=== PATIENT | male | born 1955 | race Caucasian/White ===

== ENCOUNTER 2018-01-10 11:31 | Day surgery (SDC) | payer OTHER ==
[~2018-01-10] VITALS: Ht 167.6 cm; Wt 75.9 kg
[~2018-01-10 11:31] MED LIST: ASPI81CH; Prinivil10 MG
== END 2018-01-10 13:41 | disposition home or self-care (01) ==
LOC: ORSCSDS 11:31
PROVIDERS: Surgery
PROC: 0DBL8ZX Excision of Transverse Colon, Via Natural or Artificial Opening Endoscopic, Diagnostic (ICD-10-PCS; principal; 2018-01-10 13:00)
PROC: 0DBP8ZX Excision of Rectum, Via Natural or Artificial Opening Endoscopic, Diagnostic (ICD-10-PCS; principal; 2018-01-10 13:00)
DX: Z86.010 Personal history of colon polyps (principal); D12.8 Benign neoplasm of rectum; K62.1 Rectal polyp; D12.3 Benign neoplasm of transverse colon; J44.9 Chronic obstructive pulmonary disease, unspecified; Z79.82 Long term (current) use of aspirin; Z79.899 Other long term (current) drug therapy
CPT/HCPCS: 88305; J7120

== ENCOUNTER 2018-08-17 15:24 | Emergency (ER) | payer OTHER ==
[~2018-08-17] VITALS: Ht 170.2 cm; Wt 77.1 kg
[2018-08-17] MEDS ORDERED: CLON.1 PO (15:37)
[2018-08-17] MEDS ORDERED: MELO7.5 PO (15:37)
[2018-08-17 15:56] LABS: BASOPHILS ABSOLUTE AUTO 0.07 K/mm3 (0.00-0.23); BASOPHILS PERCENT AUTO 1 % (0-2); EOSINOPHILS ABSOLUTE AUTO 0.01 K/mm3 (0.00-0.68); EOSINOPHILS PERCENT AUTO 0 % (0-6); Hematocrit 45.2 % (37.0-53.0); Hemoglobin 15.8 g/dL (13.5-17.5); IMMATURE GRAN ABSOLUTE AUTO 0.06 K/mm3 (0.00-0.10); IMMATURE GRAN PERCENT AUTO 0 % (0-1); LYMPHOCYTES ABSOLUTE AUTO 0.62 K/mm3 (0.84-5.20); LYMPHOCYTES PERCENT AUTO 4 % (21-46); MONOCYTES ABSOLUTE AUTO 0.55 K/mm3 (0.16-1.47); MONOCYTES PERCENT AUTO 4 % (4-13); Mean Corpuscular HGB 32.7 pg (26.0-34.0); Mean Corpuscular Volume 94 fL (80-100); Mean Platelet Volume 8.7 fL (9.1-12.4); NEUTROPHILS ABSOLUTE AUTO 12.81 K/mm3 (1.96-9.15); NEUTROPHILS PERCENT AUTO 91 % (41-73); Platelet Count 352 K/mm3 (150-400); RDW Coefficient Variation 13.2 % (11.7-14.2); RDW Standard Deviation 45.6 fL (35.1-46.3); Red Blood Cell Count 4.83 M/mm3 (4.30-5.90); White Blood Cell Count 14.12 K/mm3 (4.00-11.30)
[2018-08-17 16:15] LABS: Alanine Aminotransfer (ALT/SGP 33 U/L (12-78); Albumin, Blood 4.1 g/dL (3.4-5.0); Albumin/Globulin Ratio 1.1 (0.8-1.8); Alk Phos 97 U/L (50-136); Anion Gap 13 mmol/L (6-16); Aspartate Aminotrans (AST/SGOT 38 U/L (12-37); Bilirubin, Total 1.1 mg/dL (0.1-1.0); Blood Urea Nitrogen 17 mg/dL (8-24); CO2, Blood 24 mmol/L (21-32); Calcium, Blood 8.7 mg/dL (8.5-10.1); Chloride, Blood 107 mmol/L (98-108); Creatinine, Blood 1.13 mg/dL (0.60-1.20); Free Thyroxine 1.05 ng/dL (0.70-1.60); Globulin, Blood 3.8 g/dL (2.2-4.0); Glomerular Filtration Rate >60 (60-); Glucose, Blood 124 mg/dL (70-99); Magnesium, Blood 1.7 mg/dL (1.6-2.4); Potassium, Blood 3.9 mmol/L (3.5-5.5); Sodium, Blood 144 mmol/L (136-145); Total Protein, Blood 7.9 g/dL (6.4-8.2); Troponin I <0.015 ng/mL (0.000-0.040)
[2018-08-17] MEDS ORDERED: Lopressor 25 mg25 MG PO (17:12)
== END 2018-08-17 19:16 | disposition home or self-care (01) ==
LOC: ER 15:24
PROVIDERS: Internal Medicine
DX: I48.91 Unspecified atrial fibrillation (principal); Z79.899 Other long term (current) drug therapy; Z79.82 Long term (current) use of aspirin; I10 Essential (primary) hypertension; Z87.891 Personal history of nicotine dependence
CPT/HCPCS: 36415; 71045; 80053; 83735; 83880; 84439; 84443; 84484; 85025; 92960; 93005; 93010; 96374-59; 99285-25

== ENCOUNTER 2019-01-12 09:19 | Day surgery (SDC) | payer OTHER ==
[~2019-01-12] VITALS: Ht 170.2 cm; Wt 81.6 kg
[~2019-01-12 09:19] MED LIST changes: +CLON.1 PO; +Lopressor 25 mg25 MG PO; +MELO7.5 PO
[2019-01-12] MEDS ORDERED: ELIQUIS2.5 MG PO (10:13)
== END 2019-01-12 11:45 | disposition home or self-care (01) ==
LOC: ORSCSDS 09:19
PROVIDERS: Surgery
PROC: 0DBK8ZX Excision of Ascending Colon, Via Natural or Artificial Opening Endoscopic, Diagnostic (ICD-10-PCS; principal; 2019-01-12 10:45)
PROC: 0DBH8ZX Excision of Cecum, Via Natural or Artificial Opening Endoscopic, Diagnostic (ICD-10-PCS; principal; 2019-01-12 10:45)
DX: Z12.11 Encounter for screening for malignant neoplasm of colon (principal); Z86.010 Personal history of colon polyps; D12.0 Benign neoplasm of cecum; D12.2 Benign neoplasm of ascending colon; I48.91 Unspecified atrial fibrillation; J44.9 Chronic obstructive pulmonary disease, unspecified; Z87.891 Personal history of nicotine dependence; Z79.82 Long term (current) use of aspirin; Z79.899 Other long term (current) drug therapy
CPT/HCPCS: 88305; J2704; J7120

== ENCOUNTER 2019-08-14 20:33 | Emergency (ER) | payer OTHER ==
[~2019-08-14] VITALS: Ht 172.7 cm; Wt 90.7 kg
[~2019-08-14 20:33] MED LIST changes: +ELIQUIS2.5 MG PO
[2019-08-14 21:00] LABS: BASOPHILS PERCENT AUTO 1 % (0-2); EOSINOPHILS ABSOLUTE AUTO 0.65 K/mm3 (0.00-0.68); EOSINOPHILS PERCENT AUTO 8 % (0-6); Hematocrit 40.6 % (37.0-53.0); Hemoglobin 14.1 g/dL (13.5-17.5); IMMATURE GRAN ABSOLUTE AUTO 0.02 K/mm3 (0.00-0.10); IMMATURE GRAN PERCENT AUTO 0 % (0-1); LYMPHOCYTES ABSOLUTE AUTO 2.01 K/mm3 (0.84-5.20); LYMPHOCYTES PERCENT AUTO 25 % (21-46); MONOCYTES ABSOLUTE AUTO 0.76 K/mm3 (0.16-1.47); MONOCYTES PERCENT AUTO 9 % (4-13); Mean Corpuscular HGB 33.7 pg (26.0-34.0); Mean Corpuscular HGB Conc 34.7 g/dL (31.5-36.5); Mean Corpuscular Volume 97 fL (80-100); Mean Platelet Volume 8.9 fL (9.1-12.4); NEUTROPHILS ABSOLUTE AUTO 4.65 K/mm3 (1.96-9.15); NEUTROPHILS PERCENT AUTO 57 % (41-73); Platelet Count 333 K/mm3 (150-400); RDW Coefficient Variation 12.5 % (11.7-14.2); RDW Standard Deviation 44.8 fL (35.1-46.3); Red Blood Cell Count 4.19 M/mm3 (4.30-5.90); White Blood Cell Count 8.19 K/mm3 (4.00-11.30)
[2019-08-14 21:23] LABS: Alanine Aminotransfer (ALT/SGP 33 U/L (12-78); Albumin, Blood 3.8 g/dL (3.4-5.0); Alk Phos 86 U/L (50-136); Anion Gap 7 mmol/L (6-16); Aspartate Aminotrans (AST/SGOT 22 U/L (12-37); Bilirubin, Total 0.4 mg/dL (0.1-1.0); Blood Urea Nitrogen 22 mg/dL (8-24); Bun/Creatinine Ratio 12.2 (12.0-20.0); CO2, Blood 25 mmol/L (21-32); Calcium, Blood 9.1 mg/dL (8.5-10.1); Chloride, Blood 110 mmol/L (98-108); Creatinine, Blood 1.81 mg/dL (0.60-1.20); Globulin, Blood 3.9 g/dL (2.2-4.0); Glomerular Filtration Rate 41 (60-); Glucose, Blood 113 mg/dL (70-99); Potassium, Blood 4.3 mmol/L (3.5-5.5); Sodium, Blood 142 mmol/L (136-145); Total Protein, Blood 7.7 g/dL (6.4-8.2); Troponin I <0.015 ng/mL (0.000-0.040)
== END 2019-08-14 21:52 | disposition home or self-care (01) ==
LOC: ER 20:33
PROVIDERS: Emergency Medicine
DX: I10 Essential (primary) hypertension (principal); I48.91 Unspecified atrial fibrillation; J44.9 Chronic obstructive pulmonary disease, unspecified
CPT/HCPCS: 36415; 71046; 80053; 83690; 84484; 85025; 93005; 93010; 99284-25

== ENCOUNTER 2023-01-15 19:07 | Emergency (ER) | payer MEDICARE, OTHER ==
[~2023-01-15] VITALS: Ht 165.1 cm; Wt 78.9 kg
[2023-01-15 19:42] LABS: BASOPHILS PERCENT AUTO 1 % (0-2); EOSINOPHILS ABSOLUTE AUTO 1.18 K/mm3 (0.00-0.68); EOSINOPHILS PERCENT AUTO 12 % (0-6); Hematocrit 44.9 % (37.0-53.0); Hemoglobin 15.7 g/dL (13.5-17.5); IMMATURE GRAN ABSOLUTE AUTO 0.03 K/mm3 (0.00-0.10); IMMATURE GRAN PERCENT AUTO 0 % (0-1); LYMPHOCYTES ABSOLUTE AUTO 1.79 K/mm3 (0.84-5.20); LYMPHOCYTES PERCENT AUTO 18 % (21-46); MONOCYTES ABSOLUTE AUTO 1.05 K/mm3 (0.16-1.47); MONOCYTES PERCENT AUTO 10 % (4-13); Mean Corpuscular HGB 32.8 pg (26.0-34.0); Mean Corpuscular Volume 94 fL (80-100); Mean Platelet Volume 8.6 fL (9.1-12.4); NEUTROPHILS ABSOLUTE AUTO 6.01 K/mm3 (1.96-9.15); NEUTROPHILS PERCENT AUTO 59 % (41-73); Platelet Count 326 K/mm3 (150-400); RDW Coefficient Variation 13.2 % (11.7-14.2); RDW Standard Deviation 46.3 fL (35.1-46.3); Red Blood Cell Count 4.78 M/mm3 (4.30-5.90); White Blood Cell Count 10.16 K/mm3 (4.00-11.30)
[2023-01-15 19:45] VITALS: BP 138/105
[2023-01-15] MEDS ORDERED: GUAI600T33 PO (20:02)
[2023-01-15] MEDS ORDERED: TRAM50 PO (20:03)
[2023-01-15] MEDS ORDERED: METO25 PO (20:04)
[2023-01-15] MEDS ORDERED: Prinivil10 MG PO (20:04)
[2023-01-15] MEDS ORDERED: CATAPRES0.1 MG PO (20:04)
[2023-01-15 20:05] LABS: Albumin, Blood 3.6 g/dL (3.4-5.0); Albumin/Globulin Ratio 0.8 (0.8-1.8); Bilirubin, Total 0.4 mg/dL (0.1-1.0); Bun/Creatinine Ratio 12.7 (12.0-20.0); Calcium, Blood 9.7 mg/dL (8.5-10.1); Creatinine, Blood 1.5 mg/dL (0.60-1.20); Globulin, Blood 4.6 g/dL (2.2-4.0); Potassium, Blood 4.6 mmol/L (3.5-5.5); Total Protein, Blood 8.2 g/dL (6.4-8.2)
[2023-01-15] MEDS ORDERED: COMBIVENT RESPIM4 G1 (20:05)
[2023-01-15] MEDS ORDERED: TIOT18 (20:06)
[2023-01-15] MEDS ORDERED: ALBU90OI (20:06)
[2023-01-15] MEDS ORDERED: ELIQUIS5 M2 PO (20:07)
[2023-01-15] MEDS ORDERED: AMOCLA875 PO (21:03)
[2023-01-15] MEDS ORDERED: PRED20 PO (21:03)
== END 2023-01-15 21:54 | disposition home or self-care (01) ==
LOC: ER 19:07
PROVIDERS: Student in an Organized Health Care Education/Training Program
DX: J18.9 Pneumonia, unspecified organism (principal); J98.01 Acute bronchospasm; Z79.899 Other long term (current) drug therapy; Z79.891 Long term (current) use of opiate analgesic; I10 Essential (primary) hypertension; J44.9 Chronic obstructive pulmonary disease, unspecified; I48.91 Unspecified atrial fibrillation; Z87.891 Personal history of nicotine dependence
CPT/HCPCS: 71045; 80053; 84484; 85025; 93005; 93010; 94640; 94664; 96374; 99285-25; A9270; J2930

== ENCOUNTER 2023-02-05 06:46 | Emergency (ER) | payer MEDICARE, OTHER ==
[~2023-02-05] VITALS: Ht 167.6 cm; Wt 78.9 kg
[~2023-02-05 06:46] MED LIST changes: +ALBU90OI; +AMOCLA875 PO; +CATAPRES0.1 MG PO; +COMBIVENT RESPIM4 G1; +ELIQUIS5 M2 PO; +GUAI600T33 PO; +METO25 PO; +PRED20 PO; +Prinivil10 MG PO; +TIOT18; +TRAM50 PO
[2023-02-05 08:58] LABS: BASOPHILS ABSOLUTE AUTO 0.08 K/mm3 (0.00-0.23); BASOPHILS PERCENT AUTO 1 % (0-2); EOSINOPHILS ABSOLUTE AUTO 1.22 K/mm3 (0.00-0.68); EOSINOPHILS PERCENT AUTO 12 % (0-6); Hematocrit 45.4 % (37.0-53.0); Hemoglobin 15.9 g/dL (13.5-17.5); IMMATURE GRAN ABSOLUTE AUTO 0.02 K/mm3 (0.00-0.10); IMMATURE GRAN PERCENT AUTO 0 % (0-1); LYMPHOCYTES ABSOLUTE AUTO 1.14 K/mm3 (0.84-5.20); LYMPHOCYTES PERCENT AUTO 12 % (21-46); MONOCYTES ABSOLUTE AUTO 0.88 K/mm3 (0.16-1.47); MONOCYTES PERCENT AUTO 9 % (4-13); Mean Corpuscular HGB 32.8 pg (26.0-34.0); Mean Corpuscular Volume 94 fL (80-100); Mean Platelet Volume 8.7 fL (9.1-12.4); NEUTROPHILS ABSOLUTE AUTO 6.61 K/mm3 (1.96-9.15); NEUTROPHILS PERCENT AUTO 66 % (41-73); Platelet Count 294 K/mm3 (150-400); RDW Coefficient Variation 13.2 % (11.7-14.2); RDW Standard Deviation 45.2 fL (35.1-46.3); Red Blood Cell Count 4.85 M/mm3 (4.30-5.90); White Blood Cell Count 9.95 K/mm3 (4.00-11.30)
[2023-02-05 09:22] LABS: Albumin, Blood 3.8 g/dL (3.4-5.0); Albumin/Globulin Ratio 0.9 (0.8-1.8); Bilirubin, Total 0.9 mg/dL (0.1-1.0); Bun/Creatinine Ratio 15.9 (12.0-20.0); Calcium, Blood 9.6 mg/dL (8.5-10.1); Creatinine, Blood 1.64 mg/dL (0.60-1.20); Globulin, Blood 4.3 g/dL (2.2-4.0); Total Protein, Blood 8.1 g/dL (6.4-8.2)
[2023-02-05 09:43] LABS: Influenza A, PCR NEGATIVE (NEGATIVE); Influenza B, PCR NEGATIVE (NEGATIVE); Resp Syncytial Virus, PCR NEGATIVE (NEGATIVE); SARS-Cov-2 (COVID-19) PCR, MMC NEGATIVE (NEGATIVE)
[2023-02-05] MEDS ORDERED: Vibramycin100 MG PO (13:36)
[2023-02-05] MEDS ORDERED: ALBU2.5V5 INH (13:36)
[2023-02-05] MEDS ORDERED: Prednisone50 MG PO (13:36)
[2023-02-05 14:00] VITALS: BP 115/77
== END 2023-02-05 14:07 | disposition home or self-care (01) ==
LOC: ER 06:46
PROVIDERS: Physician Assistant
DX: J44.1 Chronic obstructive pulmonary disease with (acute) exacerbation (principal); I10 Essential (primary) hypertension; I48.91 Unspecified atrial fibrillation; Z87.891 Personal history of nicotine dependence; Z79.51 Long term (current) use of inhaled steroids; Z79.01 Long term (current) use of anticoagulants; Z79.1 Long term (current) use of non-steroidal anti-inflammatories (NSAID); Z79.899 Other long term (current) drug therapy
CPT/HCPCS: 0241U; 71046; 71260; 80053; 83880; 84484; 85025; 93005; 93010; 94640; 94644; 94664; 96365-59; 96375-59; 99284-25; A9270; J2930; J3475; J7030; Q9967

== ENCOUNTER 2023-03-12 14:53 | Emergency (ER) | payer MEDICARE, OTHER ==
[~2023-03-12] VITALS: Ht 167.6 cm; Wt 63.5 kg
[~2023-03-12 14:53] MED LIST changes: +ALBU2.5V5 INH; +Prednisone50 MG PO; +Vibramycin100 MG PO
[2023-03-12 15:36] LABS: BASOPHILS ABSOLUTE AUTO 0.11 K/mm3 (0.00-0.23); BASOPHILS PERCENT AUTO 1 % (0-2); EOSINOPHILS ABSOLUTE AUTO 0.96 K/mm3 (0.00-0.68); EOSINOPHILS PERCENT AUTO 8 % (0-6); Hematocrit 43.6 % (37.0-53.0); Hemoglobin 15.5 g/dL (13.5-17.5); IMMATURE GRAN ABSOLUTE AUTO 0.04 K/mm3 (0.00-0.10); IMMATURE GRAN PERCENT AUTO 0 % (0-1); LYMPHOCYTES ABSOLUTE AUTO 2.25 K/mm3 (0.84-5.20); LYMPHOCYTES PERCENT AUTO 18 % (21-46); MONOCYTES ABSOLUTE AUTO 1.16 K/mm3 (0.16-1.47); MONOCYTES PERCENT AUTO 9 % (4-13); Mean Corpuscular HGB 33.1 pg (26.0-34.0); Mean Corpuscular HGB Conc 35.6 g/dL (31.5-36.5); Mean Corpuscular Volume 93 fL (80-100); Mean Platelet Volume 8.8 fL (9.1-12.4); NEUTROPHILS ABSOLUTE AUTO 8.04 K/mm3 (1.96-9.15); NEUTROPHILS PERCENT AUTO 64 % (41-73); Platelet Count 321 K/mm3 (150-400); RDW Standard Deviation 44.1 fL (35.1-46.3); Red Blood Cell Count 4.68 M/mm3 (4.30-5.90); White Blood Cell Count 12.56 K/mm3 (4.00-11.30)
[2023-03-12 15:51] LABS: Albumin, Blood 3.7 g/dL (3.4-5.0); Albumin/Globulin Ratio 0.9 (0.8-1.8); Bilirubin, Total 0.4 mg/dL (0.1-1.0); Bun/Creatinine Ratio 8.1 (12.0-20.0); Calcium, Blood 9.6 mg/dL (8.5-10.1); Creatinine, Blood 1.61 mg/dL (0.60-1.20); Globulin, Blood 4.1 g/dL (2.2-4.0); Potassium, Blood 4.4 mmol/L (3.5-5.5); Total Protein, Blood 7.8 g/dL (6.4-8.2)
[2023-03-12 16:25] VITALS: BP 109/73
== END 2023-03-12 16:40 | disposition home or self-care (01) ==
LOC: ER 14:53
PROVIDERS: Physician Assistant
DX: R07.89 Other chest pain (principal); Z79.899 Other long term (current) drug therapy; Z79.52 Long term (current) use of systemic steroids; I10 Essential (primary) hypertension; J44.9 Chronic obstructive pulmonary disease, unspecified; I48.91 Unspecified atrial fibrillation; Z87.891 Personal history of nicotine dependence
CPT/HCPCS: 71046; 80053; 85025; 99284-25

== ENCOUNTER 2023-04-16 14:08 | Inpatient (IN) | payer MEDICARE, OTHER ==
[~2023-04-16] VITALS: Ht 170.2 cm; Wt 91.0 kg
[~2023-04-16 14:08] MED LIST changes: -COMBIVENT RESPIM4 G1; +COMBIVENT RESPIM4 G1 INH; -TIOT18; +TIOT18 INH
[2023-04-16 14:52] LABS: BASOPHILS ABSOLUTE AUTO 0.04 K/mm3 (0.00-0.23); BASOPHILS PERCENT AUTO 1 % (0-2); EOSINOPHILS ABSOLUTE AUTO 0.03 K/mm3 (0.00-0.68); EOSINOPHILS PERCENT AUTO 0 % (0-6); Hematocrit 42.8 % (37.0-53.0); Hemoglobin 14.9 g/dL (13.5-17.5); IMMATURE GRAN ABSOLUTE AUTO 0.14 K/mm3 (0.00-0.10); IMMATURE GRAN PERCENT AUTO 2 % (0-1); LYMPHOCYTES PERCENT AUTO 11 % (21-46); MONOCYTES ABSOLUTE AUTO 0.67 K/mm3 (0.16-1.47); MONOCYTES PERCENT AUTO 9 % (4-13); Mean Corpuscular HGB 32.5 pg (26.0-34.0); Mean Corpuscular HGB Conc 34.8 g/dL (31.5-36.5); Mean Corpuscular Volume 93 fL (80-100); NEUTROPHILS ABSOLUTE AUTO 5.84 K/mm3 (1.96-9.15); NEUTROPHILS PERCENT AUTO 78 % (41-73); Platelet Count 243 K/mm3 (150-400); RDW Coefficient Variation 13.5 % (11.7-14.2); RDW Standard Deviation 45.9 fL (35.1-46.3); Red Blood Cell Count 4.58 M/mm3 (4.30-5.90); White Blood Cell Count 7.52 K/mm3 (4.00-11.30)
[2023-04-16] MEDS ORDERED: PRED20 PO (15:01)
[2023-04-16] MEDS ORDERED: CARVEDILOL3.125 MG PO (15:02)
[2023-04-16] MEDS ORDERED: GABA100 PO (15:04)
[2023-04-16] MEDS ORDERED: TRAZ50 PO (15:04)
[2023-04-16 15:09] LABS: Source, Urine Clean Catch
[2023-04-16 15:11] LABS: Magnesium, Blood 1.6 mg/dL (1.6-2.4)
[2023-04-16 15:13] LABS: Albumin, Blood 3.4 g/dL (3.4-5.0); Albumin/Globulin Ratio 0.8 (0.8-1.8); Bilirubin, Total 0.6 mg/dL (0.1-1.0); Bun/Creatinine Ratio 13.6 (12.0-20.0); Creatinine, Blood 1.47 mg/dL (0.60-1.20); Globulin, Blood 4.3 g/dL (2.2-4.0); Phosphorus, Blood 2.4 mg/dL (2.5-4.9); Potassium, Blood 4.6 mmol/L (3.5-5.5); Total Protein, Blood 7.7 g/dL (6.4-8.2)
[2023-04-16 15:16] LABS: Appearance, Urine Clear (Clear); Bilirubin, Urine Neg (Neg); Blood, Urine 1+ (Neg); Color, Urine Yellow (P-Yellow); Glucose Qualitative, Urine Neg (Neg); Ketones, Urine Neg (Neg); Leukocyte Esterase, Urine Neg (Neg); Nitrite, Urine Neg (Neg); Protein, Urine Neg (Neg); Urobilinogen, Urine NORM (Normal)
[2023-04-16 15:45] LABS: D-Dimer, Quantitative 1.01 mg/L FEU (0.00-0.52); International Normalized Ratio 1.01; Prothrombin Time Results 10.6 Sec (9.7-11.5)
[2023-04-16 16:03] LABS: Red Blood Cells, Urine 0-2 /hpf (0-2); Squamous Epithelial Cells Rare /hpf (Few); White Blood Cells, Urine 0-2 /hpf (0-5)
[2023-04-16 16:04] LABS: Amorphous Light (0-Heavy); Bacteria Few /hpf; Spermatozoa Rare /hpf
[2023-04-16 17:08] LABS: Influenza A, PCR NEGATIVE (NEGATIVE); Influenza B, PCR NEGATIVE (NEGATIVE); Resp Syncytial Virus, PCR NEGATIVE (NEGATIVE); SARS-Cov-2 (COVID-19) PCR, MMC NEGATIVE (NEGATIVE)
[2023-04-16 18:38] VITALS: BP 125/74
--- NOTE | 2023-04-16 18:41 | NUR ---
ADMISSION: PT ARRIVED TO U 9 @1845 VIA GURNEY. ABLE TO AMBULATE WITH ONE PERSON ASSIST ONTO BED. PT ALERT AND ORIENTED X3, ABLE TO FOLLOW COMMANDS AND MAKE NEEDS KNOWN. ABLE TO TELL THIS RN NAME, , LOCATION. 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 BP STABLE. HR REMAINS AFIB 90'S. DILT ON STANDBY. PT DENIES CP/PRESSURE. PULSES STRONG AND EQUAL THROUGHOUT. CURRENTLY ON 2L NC SPO2 >98%. LUNG SOUNDS COARSE IN UPPER, WHEEZES IN BASES. PT STATES WEARS 2L AT BASELINE. AFEBRILE. PT ABLE TO STAND AND VOID AT BEDSIDE, APPROX 500ML OUT. NS GTT @100ML/HR IN L. FOREARM. PT STATES NIECE WILL BE IN LATER THIS EVENING TO REVIEW HEALTH HISTORY AND MEDICATIONS. PT ORIENTED TO ROOM AND CALL LIGHT SYSTEM. ALARM ON FOR SAFETY. BED IN LOW, CALL LIGHT IN REACH, WILL REPORT TO ONCOMING RN.
[2023-04-16 19:00] VITALS: BP 106/78
[2023-04-16 19:15] VITALS: BP 122/74
--- NOTE | 2023-04-16 20:15 | NUR ---
AOS: A/O X 4, AFIB 90-110'S AT THIS TIME. DENIES CHETS PAIN PRESSURE OR SOB. ON BASELINE 2L BASELINE. RECEPTIVE TO EDUCATEIONS, GENERALIZED WEAKNESS OF BLE, 1P ASSIST ABLE TO USE THE URINAL STANDING AT BEDSIDE. COOPERATIVE WITH CARE, CALL LIGHT APPROPRIATE SPO2 >92%. MILD INCREASE WOB WITH EXERTION. NEICE AT BEDSIDE. NO CONCERNS AT THIS TIME.
[2023-04-16 20:18] VITALS: BP 105/74
[2023-04-16 23:10] VITALS: BP 115/81
[2023-04-17 03:42] VITALS: BP 95/70
[2023-04-17 05:01] LABS: Bun/Creatinine Ratio 18.2 (12.0-20.0); Calcium, Blood 8.5 mg/dL (8.5-10.1); Creatinine, Blood 1.21 mg/dL (0.60-1.20); Potassium, Blood 4.3 mmol/L (3.5-5.5)
--- NOTE | 2023-04-17 05:37 | NUR ---
END OF SHIFT NOTE NO ACUTE CHANGES THIS SHIFT. HR 100'S PRIOR TO PM METOPROLOL, 70'S FOLLOWING METOPROLOL. AFIB ON TELE. SBP 90-110'S, DENIES CHEST PAIN/PRESSURE. SPO2 >92% ON 2L NC, 2L BASELINE. INCREASED RR W/ EXERTION. A&OX4. ABLE TO VOID IN URINAL W/ SBA. NS @100ML/HR INFUSING PER EMAR. COOPERATIVE W/ CARE, ABLE TO REPOSITION SELF INDEPENDENTLY IN BED. PT'S NIECE AT BEDSIDE T/O NIGHT. NO NEEDS AT THIS TIME. CALL LIGHT WITHIN REACH, BED IN LOWEST POSITION. WILL REPORT TO ONCOMING RN.
[2023-04-17 07:32] VITALS: BP 119/82
--- NOTE | 2023-04-17 08:22 | NUR ---
AM NOTE: PATIENT ALERT AND ORIENTED X4. ABLE TO MAKE NEEDS KNOWN. NEICE AT BEDSIDE. DENIES N/T. PERRLA, WEARING GLASSES. MOVING ALL EXTREMITIES EQUALLY. UP WITH SBA TO BATHROOM. DENIES DIZZINESS WHEN UP. ON BASELINE 2L NASAL CANNULA SATING MID 90'S. LUNGS SOUNDING CLEAR IN UPPER LOBES WITH FINE EXPIRATORY WHEEZE IN BILATERAL LOWER LOBES. EVEN AND UNLABORED BREATHING. TELE SHOWING AFIB WITH HR 70-90'S. BP STABLE. PPP. DENIES CHEST PAIN/PRESSURE/PALPITATIONS. PO METOPROLOL GIVEN THIS AM PER EMAR. NS INFUSING PER EMAR. DENIES ABDOMINAL PAIN/NAUSEA. EATING AND VOIDING WNL. BOWEL MOVEMENT THIS AM. BOWEL TONES PRESENT. SKIN OVERALL C/D/I. CALL LIGHT IN REACH. DENIES NEEDS AT THIS TIME.
--- NOTE | 2023-04-17 09:20 | NUR ---
DR. HUMPHREY AND DR. MARTINEZ AT BEDSIDE. ORDERS FOR MEDICAL WITH TELE AND PT/OT. ORDERS IN PLACE. WOLF AT BEDSIDE FOR PROVIDER ROUNDING. PATIENT COMPLAINS OF HEADACHE WHEN COUGHING. TYLENOL GIVEN PER EMAR. PATIENT NOW SLEEPING IN BED.
[2023-04-17 11:00] VITALS: BP 91/68
[2023-04-17 15:25] VITALS: BP 126/74
--- NOTE | 2023-04-17 18:02 | NUR ---
SHIFT SUMMARY: NO ACUTE CHANGES, PATIENTS FAMILY REMAINS AT BEDSIDE THROUGHOUT SHIFT. NO CHANGES TO TELE. HR 90-110'S THIS AFTERNOON. BP REMAINS STABLE. REMAINS ON 2L NASAL CANNULA. EATING AND VOIDING WNL. SHOWER COMPLETED TODAY. EATCHING TV AT THIS TIME WITH NEICE. NS INFUSING PER EMAR. PATIENT COMPLAINS OF MUCUS PRODUCTION, DR. MARTINEZ CALLED AND MUCINEX ORDERS IN PLACE. CALL LIGHT IN REACH. PATIENT DENIES NEEDS AT THIS TIME.
[2023-04-17 19:58] VITALS: BP 107/47
[2023-04-18 04:15] VITALS: BP 112/78
[2023-04-18 04:57] LABS: Bun/Creatinine Ratio 19.8 (12.0-20.0); Calcium, Blood 8.5 mg/dL (8.5-10.1); Creatinine, Blood 1.16 mg/dL (0.60-1.20); Potassium, Blood 4.3 mmol/L (3.5-5.5)
--- NOTE | 2023-04-18 06:48 | NUR ---
SHIFT SUMMARY A/Ox3 AND COOPERATIVE WITH CARE. ANSWERS QUESTIONS APPROPRIATELY AND ABLE TO MAKE HIS NEEDS KNOWN. NO ACUTE EVENTS NOTED OVERNIGHT. CARDIAC, REMAINS IN AFIB RHYTHYM 90-100'S WITH NO C/O CP OR PRESSURE T/O THE NIGHT. SBP HAS BEEN SOFT, BUT STABLE RANGING 100-110'S. RESPIRATORY, MAINTAINS SPO2 >90% ON BASELINE O2 OF 2L VIA NC. SOME TACHYPNEA WITH MIMIAL INCREASE IN WORK OF BREATHING NOTED WITH EXERTION. GI/, ABLE TO AMBULATE TO THE BATHROOM WITH SBA. NO BM THIS SHIFT, BUT VOIDING CLEAR/YELLOW URINE. POTENTIAL D/C HOME THIS AM. PT'S NIECE REMAINED IN ROOM T/O THE NIGHT. ASSESSED PT FOR RISKS OF ANY IGNITION SOURCES WELL BEHAVIORS FOR INCREASED RISKS OF FIRE DANGER. PT EDUCATED ON COMMON SOURCES OF IGNITION WELL NEED TO KEEP A SAFE ENVIRONMENT. PT VOICED UNDERSTANDING. NO NEW ORDERS AT THIS TIME, WILL REPORT TO ONCOMING RN. LEIGH CRAMER OF THIS NOTE
[2023-04-18 08:28] VITALS: BP 128/76
[2023-04-18] MEDS ORDERED: DELTASONE20 MG PO (11:11)
--- NOTE | 2023-04-18 12:27 | NUR ---
DISCHARGE: PT PARTICIPATES WITH PT/OT EVALUATIONS, TOLERATES WELL. PT HAS BEEN CLEARED FOR DISCHARGE HOME. ALL IV ACCESS DC'd WNL. PT DRESSES SELF. PT AND FAMILY PROVIDED WITH DC PAPERWORK/INSTRUCTIONS, ALL QUESTIONS HAVE BEEN ANSWERED. PT ESCORTED FROM UNIT VIA W/C W/OUT INCIDENT.
== END 2023-04-18 11:59 | disposition home or self-care (01) | DRG 871 ==
LOC: ER 14:08 → PCU 17:26
PROVIDERS: Emergency Medicine; Family Medicine; Student in an Organized Health Care Education/Training Program; ADMIT Nurse Practitioner Acute Care
DX: A41.9 Sepsis, unspecified organism (principal); J96.21 Acute and chronic respiratory failure with hypoxia; I47.10 Supraventricular tachycardia, unspecified; J44.1 Chronic obstructive pulmonary disease with (acute) exacerbation; E87.20 Acidosis, unspecified; R65.20 Severe sepsis without septic shock; Z11.52 Encounter for screening for COVID-19; I12.9 Hypertensive chronic kidney disease with stage 1 through stage 4 chronic kidney disease, or unspecified chronic kidney disease; N18.30 Chronic kidney disease, stage 3 unspecified; E83.42 Hypomagnesemia; E83.39 Other disorders of phosphorus metabolism; I48.0 Paroxysmal atrial fibrillation; Z79.01 Long term (current) use of anticoagulants; Z87.891 Personal history of nicotine dependence
CPT/HCPCS: 0241U; 36415; 71045; 80048; 80053; 81001; 83605; 83690; 83735; 83880; 84100; 84484; 85025; 85379; 85610; 85730; 87040; 93005; 93010; 94640; 94664; 94760; 94762; 96361; 96365; 96367; 96375; 96376; 97161; 97165; 97530; 99285-25; A9270; J0153; J0456; J0696; J2930; J7030; J7050; J7120

== ENCOUNTER 2023-07-19 12:32 | Inpatient (IN) | payer MEDICARE, OTHER ==
[~2023-07-19] VITALS: Ht 167.6 cm; Wt 95.3 kg
[~2023-07-19 12:32] MED LIST changes: +CARVEDILOL3.125 MG PO; +DELTASONE20 MG PO; +GABA100 PO; +TRAZ50 PO
[2023-07-19 13:15] LABS: BASOPHILS ABSOLUTE AUTO 0.09 K/mm3 (0.00-0.23); BASOPHILS PERCENT AUTO 1 % (0-2); EOSINOPHILS ABSOLUTE AUTO 0.76 K/mm3 (0.00-0.68); EOSINOPHILS PERCENT AUTO 9 % (0-6); Hematocrit 42.5 % (37.0-53.0); Hemoglobin 15.4 g/dL (13.5-17.5); IMMATURE GRAN ABSOLUTE AUTO 0.02 K/mm3 (0.00-0.10); IMMATURE GRAN PERCENT AUTO 0 % (0-1); LYMPHOCYTES ABSOLUTE AUTO 1.35 K/mm3 (0.84-5.20); LYMPHOCYTES PERCENT AUTO 15 % (21-46); MONOCYTES ABSOLUTE AUTO 0.73 K/mm3 (0.16-1.47); MONOCYTES PERCENT AUTO 8 % (4-13); Mean Corpuscular HGB 33.8 pg (26.0-34.0); Mean Corpuscular HGB Conc 36.2 g/dL (31.5-36.5); Mean Corpuscular Volume 93 fL (80-100); Mean Platelet Volume 8.5 fL (9.1-12.4); NEUTROPHILS ABSOLUTE AUTO 5.97 K/mm3 (1.96-9.15); NEUTROPHILS PERCENT AUTO 67 % (41-73); Platelet Count 293 K/mm3 (150-400); RDW Coefficient Variation 13.2 % (11.7-14.2); RDW Standard Deviation 45.8 fL (35.1-46.3); Red Blood Cell Count 4.55 M/mm3 (4.30-5.90); White Blood Cell Count 8.92 K/mm3 (4.00-11.30)
[2023-07-19 13:36] LABS: Albumin, Blood 3.8 g/dL (3.4-5.0); Albumin/Globulin Ratio 0.9 (0.8-1.8); Bilirubin, Total 1.4 mg/dL (0.1-1.0); Bun/Creatinine Ratio 15.8 (12.0-20.0); Calcium, Blood 9.7 mg/dL (8.5-10.1); Creatinine, Blood 1.39 mg/dL (0.60-1.20); Globulin, Blood 4.3 g/dL (2.2-4.0); Total Protein, Blood 8.1 g/dL (6.4-8.2)
[2023-07-19 13:57] LABS: Influenza A, PCR NEGATIVE (NEGATIVE); Influenza B, PCR NEGATIVE (NEGATIVE); Resp Syncytial Virus, PCR NEGATIVE (NEGATIVE); SARS-Cov-2 (COVID-19) PCR, MMC NEGATIVE (NEGATIVE)
[2023-07-19] MEDS ORDERED: MethylPREDNISolone Sod Succ 125 MG Vial IV ONE (16:10)
[2023-07-19] MEDS ORDERED: Albuterol 2.5 MG/3 ML VIAL INH SCH ×2 (16:10→18:55)
[2023-07-19] MEDS ORDERED: NS 1,000 ML IV SCH ×2 (20:35→21:45)
[2023-07-19] MEDS ORDERED: Ondansetron HCl 2 MG / ML 2ML Vial IV PRN (20:35)
[2023-07-19] MEDS ORDERED: Albuterol 2.5 MG/3 ML VIAL INH PRN (20:40)
[2023-07-19] MEDS ORDERED: Ipratropium/Albuterol SulF 2.5-0.5MG/3 ML Amp INH SCH (20:40)
[2023-07-19] MEDS ORDERED: FLU VACC QS2023-24(6MOS UP)/PF 60 MCG/0.5 ML SYRINGE IM SCH (20:40)
[2023-07-19] MEDS ORDERED: Acetaminophen 325 MG TABLET PO PRN (20:40)
[2023-07-19] MEDS ORDERED: Diltiazem HCl 5 MG / ML 5ML Vial IV PRN (20:45)
[2023-07-19] MEDS ORDERED: Metoprolol Tartrate 25 MG Tab PO SCH (21:00)
[2023-07-19] MEDS ORDERED: NS 1,000 ML IV ONE (21:00)
[2023-07-19] MEDS ORDERED: Apixaban 5 MG Tab PO SCH (21:00)
[2023-07-19] MEDS ORDERED: TraZODone HCl 50 MG Tab PO SCH (21:00)
[2023-07-19] MEDS ORDERED: Gabapentin 100 MG Cap PO SCH (21:00)
[2023-07-19] MEDS ORDERED: CloNIDine 0.1 MG Tab PO SCH (21:00)
[2023-07-19] MEDS ORDERED: Azithromycin 500 MG in NS 250 ML IV SCH (21:00)
[2023-07-19] MEDS ORDERED: GuaiFENesin 600 MG TabCR PO SCH (21:00)
[2023-07-19 22:50] VITALS: BP 96/70
[2023-07-19 23:03] VITALS: BP 96/70
[2023-07-19 23:15] VITALS: BP 95/69
[2023-07-20] MEDS ORDERED: MethylPREDNISolone Sod Succ 125 MG Vial IV SCH
--- NOTE | 2023-07-20 00:38 | NUR ---
PT ARRIVED TO UNIT AT APPROXIMATELY 2250 WITH ALL OF HIS BELONGINGS FROM THE ER. PT'S NIECE WAS WITH HIM. SHE IS TAKING SOME OF HIS BELONGINGS HOME. PT IS ALERT AND ORIENTED X 4, COOPERAIVE WITH CARE AND ABLE TO MAKE NEEDS KNOWN. RADHA. PT IS ON 3L NC AND MAINTAINING 02 SATURATION ABOVE 90%, 2L NC IS PT'S BASELINE. PTS LUNG SOUNDS ARE CONGESTED/COARSE THROUGOUT. PT GETS SOB W/EXERTION AND AFTER HE COUGHS. COUGH IS CONGESTED. HR AFIB 90'S-110'S, UP TO 130'S W/EXERTION AT TIMES, BP STABLE. PT LAST BOWEL MOVEMENT WAS YESTERDAY. HE SAID GOING EVERY DAY/EVERY OTHER DAY IS NORMAL FOR HIM. PT IS CONTINENT AND USES URINAL INDEPENDENTLY. PT IS IN THE PROCESS OF GETTING DENTURES MADE SO HE DOES NOT HAVE TEETH RIGHT NOW. IV TO R AC IS PATENT, FLUSHED, AND RUNNING PER EMAR. PT ATE A SANDWICH AND PUDDING WHEN HE ARRIVED TO UNIT. PT RESTING IN BED WITH TV ON AND VISITING WITH HIS NIECE. CALL LIGHT WITHIN REACH.
[2023-07-20 03:33] VITALS: BP 108/82
[2023-07-20 04:26] LABS: Bun/Creatinine Ratio 21.2 (12.0-20.0); Creatinine, Blood 1.37 mg/dL (0.60-1.20); Potassium, Blood 4.7 mmol/L (3.5-5.5)
--- NOTE | 2023-07-20 06:13 | NUR ---
SHIFT SUMMARY NO ACUTE CHANGES, SEE PREVIOUS NOTE. PT WAS ABLE TO GET SOME SLEEP THIS SHIFT. SOFT DIET ORDERED FOR PT SINCE HE DOES NOT HAVE TEETH RIGHT NOW AND IS WAITING ON DENTURES. PT WOKE UP SEVERAL TIMES THROUGHOUT THE NIGHT COUGHING AND QUICKLY FELL BACK TO SLEEP. HE REMAINS ON 3L NC AND MAINTAINING 02 SATURATION ABOVE 90%. HE CONTINUES TO BE IN AFIB 80'S-110'S, HE DENIES CHEST PAIN/PRESSURE. HE IS CURRENTLY SLEEPING WITH UNLABORED BREATHING. CALL LIGHT WITHIN REACH.
[2023-07-20 07:53] VITALS: BP 133/87
[2023-07-20] MEDS ORDERED: Mometasone/Formoterol MDI 100/5 mcg 13 GM INH SCH (08:20)
--- NOTE | 2023-07-20 08:29 | NUR ---
AM NOTE... ASSUMED CARE OF PT AT 0700, PT IS A&Ox4 ADMITTED FOR COPD EXAC. HE IS CURRENTLY ON 3L NC WITH O2 SATS>96%. L/S DIM WITH EXP WHEEZES ON THE RIGHT SIDE AND COARSE ON THE BILATERAL BASES. RR 16-22. HE IS IN AFIB IN THE 80'S-110'S BP IS STABLE WITH MAPS>65. PT DENIES ANY CHEST PAIN/PRESSURE. WILL CONTINUE TO MONITOR.
[2023-07-20] MEDS ORDERED: Lisinopril 10 MG Tab PO SCH (09:00)
[2023-07-20 09:30] LABS: Base Excess Venous -2.3 mmol/L; Bicarbonate Venous 22.3 mmol/L (24.0-30.0); PCO2 Venous 41.9 mmHg (38-42); pH Blood Venous 7.35 (7.34-7.37)
[2023-07-20 11:00] VITALS: BP 107/67
--- NOTE | 2023-07-20 12:47 | NUR ---
PT TRANSFER... REPORT GIVEN TO RICK LUCAS, ALL PT'S BELONGINGS PACKED AND SENT WITH THE PT. PTS VS STABLE.
--- NOTE | 2023-07-20 13:28 | NUR ---
TRANSFER TO 360 PT REPORT RECIEVD FROM ELYSE LUCAS. PT ARRIVED LAUGHING VIA W/Rebeka SINCLAIR IN ATTENDANCE. VSS. PROVIDED A FLUTTER VALVE FOR PT TO HELP WITH EXPECTORATION. CARE ON GOING.
[2023-07-20] MEDS ORDERED: ALBU90OI INH (15:31)
[2023-07-20] MEDS ORDERED: SPIRIVA RESPIMAT4 G3 INH (15:32)
[2023-07-20] MEDS ORDERED: STIOLTO RESPIMAT4 G1 INH (15:33)
[2023-07-20] MEDS ORDERED: IPRAT-ALBUT 0.5-3 ML INH (15:33)
--- NOTE | 2023-07-20 17:20 | NUR ---
NOTE PT VISITING WITH FAMILY. TELEMETRY ON-AFIB RATE 80-110 BPM. VSS. 3L OXYGEN. USING FLUTTER VALVE TO HELP WITH EXPECTORATION. EATING/DRINKING WELL. DENIED PAIN. BED LOW, LOCKED. CALL LIGHT WITHIN REACH. CARE ONGOING.
[2023-07-20 17:34] VITALS: BP 104/66
[2023-07-20 19:09] VITALS: BP 123/72
[2023-07-21 02:25] VITALS: BP 95/56
--- NOTE | 2023-07-21 04:20 | NUR ---
END OF SHIFT SUMMARY PT A&O x4, VSS, AFEBRILE. PT CURRENTLY ON 3L VIA NC. PT WEARS 2L VIA NC AT BASELINE AT HOME. PRODUCTIVE COUGH IS PRESENT, PT ENCOURAGED TO COUGH UP PHLEGM WHICH IS A CLEAR/YELLOW TINGE. PT CONTINENT OF B/B, USES THE URINAL AT BEDSIDE. PT DENIED CHEST PAIN, SOME SOB WITH ACTIVITY. PT ON TELE WITH HEART RATE AT 120 AND RHYTHM A FIB. [employer] OPERATOR CALLED ONCE TO NOTIFY THAT PT'S HEART RATE JUMPED UP TO THE 160's. PT WAS REPORTED TO HAVE GOTTEN UP OOB TO USE THE BATHROOM. FREQUENT SAFETY CHECKS COMPLETED OVER NIGHT. PT SLEPT ON AND OFF THROUGHOUT THE NIGHT. PT ABLE TO MAKE NEEDS KNOWN, CALL LIGHT WITHIN REACH, WCTM.
[2023-07-21 05:24] LABS: Bun/Creatinine Ratio 25.2 (12.0-20.0); Calcium, Blood 8.6 mg/dL (8.5-10.1); Creatinine, Blood 1.51 mg/dL (0.60-1.20); Potassium, Blood 4.7 mmol/L (3.5-5.5)
[2023-07-21 07:38] VITALS: BP 117/73
[2023-07-21] MEDS ORDERED: GUAI600T33 PO (12:39)
[2023-07-21] MEDS ORDERED: FLUTICASONE PRO12 GM INH (12:43)
[2023-07-21] MEDS ORDERED: PRED20 PO (12:48)
--- NOTE | 2023-07-21 15:10 | NUR ---
1315, DISCHARGE REVIEWED WITH PT. HE VERBALIZED UNDERSTANDING MEDS AND INSTRUCT. IV PULLED BY AIDE. TELE REMOVED AND RETURNED. PT WHEELED TO DOOR BY CITLALYE. 1316
== END 2023-07-21 13:28 | disposition home or self-care (01) | DRG 189 ==
LOC: ER 12:32 → PCU 20:32 → ER 20:32 → MEDS 20:32 → PCU 22:48 → MEDS 07-20 13:02
PROVIDERS: Family Medicine; Nurse Practitioner Acute Care; Physician Assistant; ADMIT Internal Medicine
PROC: 5A09357 Assistance with Respiratory Ventilation, Less than 24 Consecutive Hours, Continuous Positive Airway Pressure (ICD-10-PCS; principal; 2023-07-19)
DX: J96.21 Acute and chronic respiratory failure with hypoxia (principal); J44.1 Chronic obstructive pulmonary disease with (acute) exacerbation; E87.1 Hypo-osmolality and hyponatremia; I48.0 Paroxysmal atrial fibrillation; I10 Essential (primary) hypertension; Z99.81 Dependence on supplemental oxygen; Z79.899 Other long term (current) drug therapy; Z79.01 Long term (current) use of anticoagulants; Z79.51 Long term (current) use of inhaled steroids; Z98.890 Other specified postprocedural states; Z87.891 Personal history of nicotine dependence; Z11.52 Encounter for screening for COVID-19
CPT/HCPCS: 0241U; 36415; 71046; 80048; 80053; 82803; 83880; 84484; 85025; 93005; 93010; 93306; 94640; 94644; 94645; 94664; 94760; 94762; 96361; 96374; 96375; 99285-25; A9270; J0456; J2930; J7030; J7050

== ENCOUNTER → 2024-04-03 | Outpatient (CLI) | payer MEDICARE, OTHER ==
[~2024-04-03] MED LIST changes: +ALBU90OI INH; +FLUTICASONE PRO12 GM INH; +IPRAT-ALBUT 0.5-3 ML INH; +SPIRIVA RESPIMAT4 G3 INH; +STIOLTO RESPIMAT4 G1 INH
== END ==
LOC: LAB SHORT 11:19 → LAB 11:19
DX: J44.1 Chronic obstructive pulmonary disease with (acute) exacerbation (principal)
CPT/HCPCS: 87070; 87186; 87205

== ENCOUNTER 2024-12-02 15:35 | Emergency (ER) | payer MEDICARE ==
[~2024-12-02] VITALS: Ht 167.6 cm; Wt 104.3 kg
[2024-12-02 16:31] VITALS: BP 124/84
[2024-12-02 17:28] LABS: Albumin, Blood 3.3 g/dL (3.4-5.0); Albumin/Globulin Ratio 0.9 (0.8-1.8); BASOPHILS ABSOLUTE AUTO 0.07 K/mm3 (0.00-0.23); BASOPHILS PERCENT AUTO 1 % (0-2); Bilirubin, Total 0.7 mg/dL (0.1-1.0); Bun/Creatinine Ratio 16.5 (12.0-20.0); Calcium, Blood 8.5 mg/dL (8.5-10.1); Creatinine, Blood 1.33 mg/dL (0.60-1.20); EOSINOPHILS ABSOLUTE AUTO 0.38 K/mm3 (0.00-0.68); EOSINOPHILS PERCENT AUTO 4 % (0-6); Globulin, Blood 3.8 g/dL (2.2-4.0); Hematocrit 33.2 % (37.0-53.0); Hemoglobin 11.1 g/dL (13.5-17.5); IMMATURE GRAN ABSOLUTE AUTO 0.09 K/mm3 (0.00-0.10); IMMATURE GRAN PERCENT AUTO 1 % (0-1); LYMPHOCYTES ABSOLUTE AUTO 1.63 K/mm3 (0.84-5.20); LYMPHOCYTES PERCENT AUTO 16 % (21-46); MONOCYTES ABSOLUTE AUTO 1.28 K/mm3 (0.16-1.47); MONOCYTES PERCENT AUTO 12 % (4-13); Mean Corpuscular HGB 32.1 pg (26.0-34.0); Mean Corpuscular HGB Conc 33.4 g/dL (31.5-36.5); Mean Corpuscular Volume 96 fL (80-100); Mean Platelet Volume 8.4 fL (9.1-12.4); NEUTROPHILS ABSOLUTE AUTO 7.04 K/mm3 (1.96-9.15); NEUTROPHILS PERCENT AUTO 67 % (41-73); Platelet Count 347 K/mm3 (150-400); Potassium, Blood 3.5 mmol/L (3.5-5.5); RDW Coefficient Variation 13.4 % (11.7-14.2); RDW Standard Deviation 47.6 fL (35.1-46.3); Red Blood Cell Count 3.46 M/mm3 (4.30-5.90); Total Protein, Blood 7.1 g/dL (6.4-8.2); White Blood Cell Count 10.49 K/mm3 (4.00-11.30)
[2024-12-02 17:37] LABS: International Normalized Ratio 1.07; Prothrombin Time Results 11.7 Sec (9.7-11.5)
[2024-12-02] MEDS ORDERED: Furosemide 10 MG / ML 2ML Vial IV ONE (19:00)
== END 2024-12-02 19:15 | disposition home or self-care (01) ==
LOC: ER 15:35
PROVIDERS: Student in an Organized Health Care Education/Training Program
DX: S30.1XXA Contusion of abdominal wall, initial encounter (principal); X58.XXXA Exposure to other specified factors, initial encounter; I12.9 Hypertensive chronic kidney disease with stage 1 through stage 4 chronic kidney disease, or unspecified chronic kidney disease; N18.30 Chronic kidney disease, stage 3 unspecified; I48.91 Unspecified atrial fibrillation; J44.9 Chronic obstructive pulmonary disease, unspecified; Z79.01 Long term (current) use of anticoagulants; Z79.899 Other long term (current) drug therapy; Z87.891 Personal history of nicotine dependence
CPT/HCPCS: 74177; 80053; 83690; 84484; 85025; 85610; 85730; 86850; 86900; 86901; 93005; 93010; 96374-59; 99284-25; J1938; Q9967